=== PATIENT | female | born 1980 | race Caucasian/White ===

== ENCOUNTER 2018-03-16 22:18 | Emergency (ER) | payer OTHER ==
[~2018-03-16] VITALS: Ht 162.6 cm; Wt 52.2 kg
[~2018-03-16 22:18] MED LIST: AZITHROMYCIN250 MG; CLARITIN10 MG; DORYX100 M1 PO; NASONEX17 GM
== END 2018-03-17 02:17 | disposition home or self-care (01) ==
LOC: ER 22:18
DX: K21.9 Gastro-esophageal reflux disease without esophagitis (principal)

== ENCOUNTER 2023-11-04 02:18 | Emergency (ER) | payer OTHER ==
[~2023-11-04] VITALS: Ht 162.6 cm; Wt 53.5 kg
[2023-11-04] MEDS ORDERED: DEXILANT60 MG (02:24)
[2023-11-04] MEDS ORDERED: ORASEP SPRAY30 ML MM (06:09)
[2023-11-04] MEDS ORDERED: LEVSIN/SL0.125 MG SL (06:25)
== END 2023-11-04 06:29 ==
LOC: ER 02:18
DX: R13.19 Other dysphagia (principal)